=== PATIENT | male | born 1965 ===

== ENCOUNTER 2025-10-09 09:39 | Emergency (ER) | payer OTHER ==
[~2025-10-09] VITALS: Ht 172.7 cm; Wt 92.7 kg
[~2025-10-09 09:39] MED LIST: DOBUTamine/D5W 500mg/250ml premix IV ONE; calcium chloride 100 MG/1 ML inj IV ONE; epiNEPHrine 0.1mg/ml 10ml syringe ONE; etomidate 2mg/ml inj. ONE; niCARDipine in NS 40mg/200ml (0.2mg/ml) IVPB IV ONE; rocuronium 10mg/ml inj IV ONE; sod chloride 0.9% 10ml flush syringe IV ONE; sodium bicarbonate (8.4%) 1 mEq/ml syringe ONE; tPA-cathflo 2mg/2ml IV flush 2 MG/2 ML VIAL ONE
[2025-10-09 09:50] VITALS: TEMP 98.1
--- NOTE | 2025-10-09 09:53 | ELECTROCARDIOGRAPH REPORT ---
[facility] Test Date: 2025-10-09 Test Time: 09:45:13 Pat Name: ALBERTINA HATFIELD Department: EMERGENCY ROOM Patient ID: [id number] Room: Gender: M In File Operator: HAO : 1965 Requested By: BLAKE MAURICIO Order Number: [id number] Reading MD: Dr. SNEHAL Chu Measurements Intervals [place] Rate: 119 P: 40 FL: 147 QRS: -17 QRSD: 164 T: 66 QT: 330 QTc: 465 Interpretive Statements Sinus tachycardia IVCD, consider atypical RBBB Probable anterolateral infarct, acute Electronically Signed On 10-11-2025 17:38:[address] SNEHAL Chu Please click the below link to view image of tracing.
[2025-10-09 10:04] LABS: MEAN PLATELET VOLUME 10.0 FL (7.4-10.4); RED CELL DISTRIBUTION WIDTH 13.7 % (11.5-14.5)
[2025-10-09 10:11] VITALS: RESP 30
[2025-10-09 10:17] LABS: CREATININE 3.04 MG/DL (0.60-1.10); PRO BRAIN NATRIURETIC PEPTIDE 17373 PG/ML (0-125); eCRCL 24 ML/MIN; eGFR 21 ML/MIN
--- NOTE | 2025-10-09 10:19 | RADIOLOGY REPORT ---
EXAM: DI CHEST,SINGLE VIEW Indication: CP Technique: Single frontal view of the chest was obtained Comparison: None FINDINGS: Lines and Tubes: None Lungs: No focal consolidation. Pleura: No effusion. No pneumothorax. Cardiomediastinal contours: Unremarkable Bones: No acute osseous abnormality. IMPRESSION: No acute cardiopulmonary disease.
[2025-10-09 10:36] LABS: LARGE PLATELETS FEW; PLATELET ESTIMATE NORMAL
[2025-10-09 10:42] LABS: TOTAL CARBON DIOXIDE 12.1 MMOL/L (24-32)
[2025-10-09] MEDS ORDERED: heparin 10,000 units/1 ML INJ IV PRN (10:45)
[2025-10-09] MEDS: LidoCAINE 2% Topical Jelly 11mL syringe (UROJET) TOP ONE (11:00)
[2025-10-09] MEDS: NORepinephrine 8mg/ 250ml NS 250 ML IV ONE ×2 (11:16→13:30)
[2025-10-09 11:21] LABS: APTT 28 SECONDS (22-32); INR 1.4 INR
[2025-10-09] MEDS: MESSAGE TO NURSING IV ONE (11:47)
[2025-10-09 12:03] LABS: PHOSPHORUS 11.9 MG/DL (2.3-4.5)
[2025-10-09] MEDS: heparin 25,000 UNIT/250ml bag 250 ML IV PRN (12:19)
[2025-10-09] MEDS: heparin 10,000 units/1 ML INJ IV ONE (12:21)
--- NOTE | 2025-10-09 12:32 | Physician Documentation ---
History of Present Illness ~ Chief Complaint: Chest Pain Stated Complaint: SOB Time Seen by MD: 10:10 Mode of Arrival: POV, Ambulatory HPI 60 years old male presented to the ED with shortness of breaths and back pain. Patient reported his symptoms started last night, he reported he was out for cutting a tree yesterday and when he came back he experienced shortness of breaths and also reported back pain. he reported the back pain located on between his shoulders, severity 9/10, he took ibuprofen and Tylenol and pain has been improving. He denied any cough orthopnea, fever or chills however he reported his progressive shortness of breaths getting worse overnight, light- headedness and generalized weakness. Patient smoked cigarettes occasionally and drink two beer a day, he denied any past medical history, and not taking any medication Denied abdominal pain any changing in bowel habits or urinary symptoms. He does not have primary care doctor, not being checked for any medical condition Medication Reconciliation Allergies: Coded Allergies: No Known Allergies (Unverified , 10/09/25) Past Medical History Past Medical History: No Pertinent History Past Surgical History: no surgical history Smoking Status: Current some day smoker Alcohol Use: Other (Drink alcohol, two beer everyday) Review of Systems ROS The history of present illness included a review of system, which yielded relevant positives and negatives Constitutional: Denies: chills, fever Respiratory: Reports: shortness of breath; Denies: cough, wheezing Cardiovascular: Denies: chest pain Gastrointestinal: Denies: abdominal pain, nausea, vomiting Physical Exam Vital Signs: Temperature: 98.1, Source: Temporal, Heart Rate: 117, Respiratory Rate: 30, BP: 103/65, Pulse Oximetry: 98, Weight: 92.730 Oxygen Flow Rate: 0 Physical Exam General: Awake and Alert, acute distress. HEENT: Conjunctiva pink, Sclera clear, Mucus Membranes dry Neck: Supple without masses and tenderness. Resp: Lungs clear to auscultation bilaterally. Heart: Regular Rate and rhythm, normal S1 and S2, Murmur + Abdomen: Soft and non tender no organomegaly Extremities: No cyanosis,clubbing or edema. Skin: Warm and Dry. Neurological: Speech is clear, alert, and oriented x 4, no gross neurological deficits Procedures Central Line Lumen: triple Central Line Procedure: sterile drapes applied Position: internal jugular (R) Complications: none Post Position: sutured, good blood return Tolerated Procedure Well?: yes, no complications Procedure Note Right IJ central venous catheter performed by resident physician with me scrubbed in as resident programs assistant. She made 1 attempt and had difficulty visualizing the internal jugular vein at which point I took over the procedure and placed the catheter. The patient tolerated the procedure well. Post x-ray showed proper placement Intubation Intubation Method: orotracheal Medications: Etomidate, other (rocuronium) ETT Confirmation: Ascultation, CO2 Detector, Direct Visualization Breath Sounds After Intubation: equal Intubation Complications: no complications Additional Procedures Additional Procedure Note Arterial line attempted x1 by resident physician Chauncey was unsuccessful Placed on 2nd attempt by myself. Patient tolerated procedure well no complications. Sutured in place with good waveform matching blood pressure cuff Progress Progress Note Doctor Mauricio addendum: I was at the bedside of this patient working directly with the resident physician and at bedside for greater than 120 minutes. This is a 60-year-old male who had not seen a primary care physician in years. He arrived presenting initially with back pain yesterday into the evening which has since improved. He developed increasing dyspnea and presented for shortness of breath. He denies any chest pain. His vitals on arrival were slight tachcardia and normotension, initially not requiring oxygen. concern initially for pulmonary embolism versus acute coronary syndrome versus CHF, infectious etiology such as biliary pathology, pneumonia and aortic pathology such as impending aortic dissection with rupture. Bedside ultrasound rapidly performed which showed normal aorta, no cholecystitis or free fluid. Thoracic ultrasound showed no B lines. Bedside echocardiogram initially with slightly diminished systolic function around 55% and no significant RV dilation with no pericardial effusion and no pleural effusions. Labs returned showing leukocytosis and elevated hemoglobin suggestive of infectious versus heme concentration. His metabolic panel showed GFR of 21 creatinine 3.04 and glucose 104 with anion gap metabolic acidosis. EKG showed right bundle. His troponin returned elevated and proBNP profoundly elevated. He tolerated initial crystalloid bolus which improved his pressures and his shortness of breath improved. He remained chest pain-free however hypotension returned for which he was started on vasopressors. He was started on heparin for elevated troponin. Villagran catheter placed at which time he only had 20 cc of urine in his bladder. He was then sent over to CT scan after carefully monitored fluid resuscitation and pressor titration with arterial line in place to help with undifferentiated shock. CT performed which showed right lower lobe infiltrate and no significant pulmonary embolism or intrabominal pathology was seen on CT noncontrast. He was given broad-spectrum antibiotics to cover for potential infectious etiology. He continued to tolerate fluids with no increasing O2 requirements he was given insulin to help with his diabetic ketoacidosis while continuing judicious fluid resuscitation given elevated bnp. Formal echocardiogram was performed as was lower extremity duplex to rule out DVT since given his acute renal failure I did not want to perform CTA pulmonary embolism. Duplex was negative and given his hypotension without profound hypoxia and no signs of RV strain on my bedside ultrasound felt less likely pulmonary embolism. His formal echocardiogram was performed at bedside and we determined his ejection fraction to be 35%. After this he was started on dobutamine for persistent hypotension. The case was discussed with Cardiology regarding the elevated troponin as well as the echocardiogram findings and history and it was recommended that he be medically stabilized. Junior Account Executive came to bedside and evaluated the patient and shortly after unfortunately patient then had an acute episode of return of shortness of breath and syncope. I immediately was at bedside within a few seconds and found him agonal breathing with pulse with persistent sinus tachycardia on the monitor with pulse oximetry in the high 90s. He however at this time became more hypotensive despite maximal pressors he then deteriorated to PEA/non perfusing rhythm and CPR was continued while the patient was intubated. I discussed with cardiology at bedside and we considered giving thrombolytic versus taking him to the [employer]. Given his persistent severe medical instability and multiorgan failure with DKA and now deteriorating systolic function we agreed to try lytic. D/w pigment weigher Dr. King who agreed with poor prognosis. No recommended changes to treatment plan. After most pulse checks he would continue to have sinus tachycardia in the low 100s but with quick deterioration to non perfusable rhythm despite maximal pressors (Levophed, epinephrine and dobutamine). He did have very brief episode of V-tach however he spontaneously cardioverted back to sinus rhythm within a few seconds. Unfortunately given his multiorgan failure with metabolic acidosis, renal failure ([id number] U/O) and DKA with cardiogenic shock he was unable to sustain a perfusable rhythm despite maximal therapy and he ultimately with his family at bedside Results/Orders Reviewed/noted all lab results: Yes Results/Orders Orders - BLAKE MAURICIO MD Chest,Single View (10/09/25 09:51) Monitor (10/09/25 09:51) Saline Lock (10/09/25 09:51) Oxygen (10/09/25 09:51) Culture Blood (10/09/25 10:57) * (A) Villagran- Protocol * Q12H@07,19 (10/09/25 10:57) Vl Venous (10/09/25 10:57) Chest,Single View (10/09/25 11:58) Ct Chest Abdomen Pelvis (10/09/25 13:12) Cult Urine + [place] [facility] (10/09/25 13:24) Norepinephrine 8mg/ 250ml Ns (Norepineph (10/09/25 13:25) Dobutamine-Dobutrex 500mg/D5w (Dobutamin (10/09/25 14:38) Normal Saline 250ml... W/Epinephrine Inj (10/09/25 14:45) Sodium Chloride 0.4... W/Sodium Bicarbon (10/09/25 15:05) Normal Saline 250ml... W/Epinephrine Inj (10/09/25 16:10) Completed Orders - BLAKE MAURICIO MD Chest,Single View (10/09/25 09:51) Cbc/Diff (10/09/25 09:51) BMP (10/09/25 09:51) PBNP (10/09/25 09:51) Electrocardiogram (10/09/25 09:51) Hs Troponin I W Calculations (10/09/25 09:51) Hs Troponin I W Calculations (10/09/25 11:51) Hs Troponin I W Calculations (10/09/25 12:51) Iohexol 350mg/Ml 100ml (Omnipaque 350mg/ (10/09/25 10:39) Norepinephrine 8mg/ 250ml Ns (Norepineph (10/09/25 10:55) Procalcitonin (10/09/25 10:57) LA (10/09/25 10:57) Lidocaine 2% Jelly 11ml Syr (Glydo-Lidoc (10/09/25 11:00) Vl Venous (10/09/25 10:57) ESR (10/09/25 11:00) Message To Nursing (10/09/25 11:00) C-Reactive Protein (10/09/25 09:47) MG (10/09/25 09:47) PHOS (10/09/25 09:47) Ringers Solution, Lacted (Lactated Ringe (10/09/25 11:55) Chest,Single View (10/09/25 11:58) Piperacillin/Tazo 4.5gm/100ml (Zosyn 4.5 (10/09/25 12:10) Vancomycin*Pharmacy To Dose* (Vancomycin (10/09/25 12:10) Ct Chest Abdomen Pelvis (10/09/25 13:12) Vancomycin Inj. (Vancomycin Iv) (10/09/25 12:45) Ondansetron Inj. (Zofran 4mg/2ml Vial) (10/09/25 12:50) Lactic,2hr (10/09/25 13:07) Ua W/Microscopic, Cult If Ind (10/09/25 12:41) Vasopressin 20 Units/Ns 100ml (Vasopress (10/09/25 14:10) Dobutamine-Dobutrex 500mg/D5w (Dobutamin (10/09/25 14:15) Sodium Chloride 0.4... W/Sodium Bicarbon (10/09/25 15:05) Insulin Regular, Human (Humulin R 10 Uni (10/09/25 15:06) Electrocardiogram (10/09/25 15:00) Tranexamic Acid Inj. (Cyklokapron Inj.) (10/09/25 16:20) Medications Received in ER Medications (Trade) Dose Ordered Sig/Symone Route PRN Reason Start Time Stop Time Status Last Admin Dose Admin (heparin 10,000 unit/ml 1ml inj) 7,400 units ONCE ONCE IV 10/09/25 10:45 10/09/25 10:57 DC 10/09/25 12:21 7,400 UNITS Heparin Sodium/ Dextrose 250 ml @ 17 mls/hr [id number] PRN IV TO MAINTAIN PTT WITHIN RANGE 10/09/25 10:45 10/09/25 12:19 17 MLS/HR Norepinephrine Bitartrate 250 ml @ 17.387 mls/ hr [id number] ONCE IV 10/09/25 10:55 10/09/25 13:27 DC 10/09/25 11:16 52.161 MLS/HR Non-Formulary Medication 1 each ONCE ONCE IV 10/09/25 11:00 10/09/25 11:01 DC 10/09/25 11:47 1 EACH (GLYDO-Lidocaine 2% Topical Jelly 11mL syringe) 1 applic ONCE ONCE TOP 10/09/25 11:00 10/09/25 11:01 DC 10/09/25 11:00 1 APPLIC Lactated Ringer's 1,000 ml @ 1,000 mls/hr ONCE ONCE IV 10/09/25 11:55 10/09/25 12:54 DC 10/09/25 12:33 1,000 MLS/HR Piperacillin/ Tazobactam/ Dextrose 100 ml @ 25 mls/hr ONCE ONCE IV 10/09/25 12:10 10/09/25 16:09 DC 10/09/25 13:31 25 MLS/HR Vancomycin HCl 750 mg/Sodium Chloride 250 ml @ 250 mls/hr ONCE ONCE IV 10/09/25 12:45 10/09/25 13:44 DC 10/09/25 13:31 250 MLS/HR (Zofran 4mg/2ml vial) 4 mg ONCE ONCE IV 10/09/25 12:50 10/09/25 12:51 DC 10/09/25 12:57 4 MG Insulin Human Regular 100 ml @ 9 mls/hr [id number] IV 10/09/25 13:10 10/09/25 13:32 9 MLS/HR Norepinephrine Bitartrate 250 ml @ ud STK-MED ONCE IV 10/09/25 13:23 10/24/25 10:30 10/09/25 13:30 0.7 MLS/HR Norepinephrine Bitartrate 250 ml @ 17.387 mls/ hr [id number] IV 10/09/25 13:25 10/09/25 13:33 17.387 MLS/HR Lactated Ringer's 1,000 ml @ 500 mls/hr Q2H ONCE IV 10/09/25 13:35 10/09/25 15:34 DC 10/09/25 13:35 500 MLS/HR Lactated Ringer's 1,000 ml @ 1,000 mls/hr Q1H IV 10/09/25 14:10 10/09/25 19:09 10/09/25 14:10 1,000 MLS/HR Lactated Ringer's 1,000 ml @ 250 mls/hr Q4H IV 10/09/25 14:10 10/09/25 14:10 250 MLS/HR Dobutamine HCl/ Dextrose 250 ml @ 5.564 mls/ hr [id number] ONCE IV 10/09/25 14:38 10/11/25 11:10 10/09/25 14:38 55.638 MLS/HR Epinephrine HCl 10 mg/Sodium Chloride 250 ml @ 13.91 mls/ hr [id number] IV 10/09/25 14:45 10/09/25 14:45 13.91 MLS/HR Sodium Bicarbonate 150 ml/Sodium Chloride 1,150 ml @ 100 mls/hr [id number] IV 10/09/25 15:05 10/09/25 15:05 100 MLS/HR Sodium Bicarbonate 150 ml/Sodium Chloride 1,150 ml @ 1,150 mls/hr Q1H ONCE IV 10/09/25 15:05 10/09/25 16:04 DC 10/09/25 15:05 1,150 MLS/HR (HumuLIN R 10 units per 0.1 ML syringe) 20 units STK-MED ONCE .ROUTE 10/09/25 15:06 10/09/25 15:06 DC 10/09/25 15:06 20 UNITS (Cyklokapron inj.) 50 mg ONCE ONCE IV 10/09/25 16:20 10/09/25 16:21 DC 10/09/25 14:30 50 MG Vital Signs 10/09/25 10/09/25 10/09/25 10/09/25 09:50 10:00 10:11 10:15 Temp 98.1 Pulse 117 120 116 Resp 20 30 B/P (MAP) 132/110 85/65 (72) 95/59 (71) Pulse Ox 98 95 95 O2 Flow Rate 0 10/09/25 10/09/25 10/09/25 10/09/25 10:30 11:00 11:16 11:18 Pulse 120 120 B/P (MAP) 62/46 (51) 90/59 (69) 80/64 103/65 Pulse Ox 98 99 10/09/25 10/09/25 10/09/25 10/09/25 11:30 11:45 12:00 12:30 Pulse 120 117 117 116 B/P (MAP) 99/76 (84) 100/66 (77) 147/127 (134) 94/74 (81) Pulse Ox 99 98 99 99 10/09/25 10/09/25 10/09/25 10/09/25 13:00 13:30 13:30 14:00 Pulse 118 120 115 B/P (MAP) 147/120 (129) 154/137 (143) 89/62 174/134 (147) Pulse Ox 99 99 99 10/09/25 10/09/25 14:30 15:00 Pulse 115 B/P (MAP) 84/54 (64) 145/61 (89) Pulse Ox 99 99 Laboratory Tests Test 10/09/25 09:47 10/09/25 12:41 10/09/25 12:44 10/09/25 12:46 White Blood Count 16.8 H Red Blood Count 5.42 Hemoglobin 18.0 *H Hematocrit 55.5 H Mean Corpuscular Volume 102.4 H Mean Corpuscular Hemoglobin 33.2 H Mean Corpuscular Hemoglobin Concent 32.4 L Red Cell Distribution Width 13.7 Platelet Count 194 Mean Platelet Volume 10.0 Neutrophils (%) (Auto) 81.2 H Lymphocytes (%) (Auto) 7.7 L Monocytes (%) (Auto) 11.0 Eosinophils (%) (Auto) 0 Basophils (%) (Auto) 0.1 Neutrophils # (Auto) 13.6 H Lymphocytes # (Auto) 1.3 Monocytes # (Auto) 1.8 H Eosinophils # (Auto) 0.0 Basophils # (Auto) 0.0 CBC Comment Platelet Estimate Normal Large Platelets Few Red Blood Cell Morphology Perf Basophilic Stippling Macrocytosis 1+ Erythrocyte Sedimentation Rate 2 Prothrombin Time 13.6 H INR International Normalized Ratio 1.4 Activated Partial Thromboplast Time 28 D-Dimer 5.83 H D-Dimer Comment Coagulation Comments Sodium Level 131 L Potassium Level 4.9 Chloride Level 88 L Carbon Dioxide Level 12.1 *L Anion Gap 31 H Blood Urea Nitrogen 38 H Creatinine 3.04 H Estimated GFR/1.73 m2 21 BUN/Creatinine Ratio 12.5 Glucose Level 804 *H Lactic Acid Level 18.8 *H Calcium Level 9.4 Phosphorus Level 11.9 H Magnesium Level 3.3 H Troponin I High Sensitivity 92496 *H 983718 *H Troponin I High Sens Percent Delta Troponin I Hi Sens Absolute Change C-Reactive Protein 1.75 H Pro-B-Type Natriuretic Peptide 77621 H Albumin 4.0 Procalcitonin 1.03 H Chemistry Comments Urine Specimen Description Villagran cath Urine Color Yellow Urine Clarity Clear Urine pH 5.5 Urine Specific [place] 1.025 Urine Protein Trace Urine Glucose (UA) >=1000 H Urine Ketones 15 H Urine Occult Blood Large H Urine Nitrite Negative Urine Bilirubin Small Urine Urobilinogen 0.2 Urine Leukocyte Esterase Negative Urine RBC 20-50 Urine WBC 10-20 H Urine Squamous Epithelial Cells Few Urine Bacteria 1+ Urine Hyaline Casts 3-5 Urine Mucus Few Urine Culture Indicated Indicated Volume Urine Centrifuged 10 ml Urine Comment Glucometer > 600 *H Test 10/09/25 13:43 10/09/25 15:04 Sodium Level 136 Potassium Level 5.5 H Chloride Level 95 L Carbon Dioxide Level 9.6 *L Anion Gap 31 H Blood Urea Nitrogen 42 H Creatinine 3.21 H Estimated GFR/1.73 m2 20 BUN/Creatinine Ratio 13.1 Glucose Level 744 *H Lactic Acid Level 17.0 *H Calcium Level 8.4 L Magnesium Level 3.2 H Total Bilirubin 2.4 H Aspartate Amino Transf (AST/SGOT) 1129 H Alanine Aminotransferase (ALT/SGPT) 716 H Alkaline Phosphatase 93 Troponin I High Sensitivity 944904 *H Troponin I High Sens Percent Delta Troponin I Hi Sens Absolute Change Total Protein 6.6 Albumin 3.2 L Globulin 3.4 Albumin/Globulin Ratio 0.9 L Lipase 359 H Chemistry Comments Glucometer > 600 *H Microbiology Date/Time Source Procedure Growth Status 10/09/25 13:24 Urine Villagran Cath Urine Culture - Preliminary Culture received. Resulted 10/09/25 12:44 Blood Arm Right Blood Culture - Preliminary NEGATIVE (LESS THAN 24 HOURS) Resulted EKG/XRAY/CT/US/VASC/MRI EKG : Additional Comment EKG showed sinus tachycardia rate 119, right bundle branch block, no ST- elevation Chest X-Ray : Additional Comments EXAM: DI CHEST,SINGLE VIEW Indication: CP Technique: Single frontal view of the chest was obtained Comparison: None FINDINGS: Lines and Tubes: None Lungs: No focal consolidation. Pleura: No effusion. No pneumothorax. Cardiomediastinal contours: Unremarkable Bones: No acute osseous abnormality. IMPRESSION: No acute cardiopulmonary disease. : Impression Indication: shock Technique: CT axial images of the chest, abdomen and pelvis are obtained without intravenous contrast. Coronal and sagittal reformats were obtained. Radiation Dose Information: CTDI volume is 21 mGy. Dose-length product is 1455 mGy*cm Comparison: None FINDINGS: Limited evaluation without contrast. Trachea patent. No pneumothorax. Right lower lobe airspace consolidation, ground-glass disease and interlobular septal thickening. Heart normal in size. Coronary artery calcification disease. Tiny right pleural effusion. 12 mm subcarinal lymph node. No supraclavicular, axillary lymphadenopathy. Adrenal glands, spleen, pancreas unremarkable in shape. Hepatic steatosis. No CT evidence for cholelithiasis. No hydronephrosis, nephrolithiasis. Gastric distention. Small bowel loops are normal in caliber. Colonic diverticular disease. Normal appendix. Moderate volume stool in the colon. Abdominal aortic atherosclerotic disease. Bladder decompressed by Villagran catheter. Cm transversely. No free pelvic fluid. No inguinal lymphadenopathy. Right hydrocele. No aggressive osseous process. [id number] thoracolumbar degenerative disc disease. Right IJ catheter terminating in the SVC. IMPRESSION: Right lower lobe pulmonary airspace consolidation, ground-glass disease and interlobular septal thickening which can be secondary to combination of infection, inflammatory and edematous etiologies. Recommend follow-up to resolution to exclude any type of underlying neoplastic process/carcinomatosis. Tiny right pleural effusion. Mediastinal lymphadenopathy which could be secondary to infectious, inflammatory, neoplastic etiologies. Hepatic steatosis. Colonic diverticular disease. Atherosclerotic disease. Prostatomegaly. Correlate with PSA levels. Other findings as described Ultrasound : Impression EXAM: Comprehensive 2D, Doppler, and color-flow Echocardiogram. Patient Location: ED6 Blood Pressure: 95/63 mmHg Heart Rate: 118 bpm Rhythm: Sinus Tachycardia Indications SHORTNESS OF BREATH PRESETTER OPERATOR: SNEHAL SALAZAR MD PRIOR ECHOCARDIOGRAM: None. 2D Dimensions RVDd 3.0 cm IVSd 1.1 (0.7-1.1cm) LVDd 4.4 cm PWd 1.0 (0.7-1.1cm) IVSs 1.1 (0.8-1.2cm) LVDs 3.7 (2.5-4.0cm) PWs 1.1 (0.8-1.2cm) LVOT Diameter 2.02 (1.8-2.4cm) LVEF(%) 33.8 (>50%) FS (%) 15.9 % SV 29.8 ml CO 3.5 L/min M-Mode Dimensions Left Atrium(MM) 4.51 (2.5-4.0cm) Aortic Root 3.15 (2.2-3.7cm) Aortic Cusp Exc 1.95 (1.5-2.0cm) Aortic Valve AoV Peak Elmo. 74.4 cm/s AoV VTI 8.2 cm AO Peak GR. 2.2 mmHg AO Mean GR. 1 mmHg LVOT VTI 5.16 cm LVOT Peak Elmo. 44.2 cm/s YULY (VTI) 2.01 cm2 AV DI 0.63 % Mitral Valve MV E Velocity 51.1 cm/s MV Peak Gr. 3 mmHg MV A Velocity 65.9 cm/s MV PHT 36 ms E/A Ratio 0.8 MVA (PHT) 6.11 cm2 MV VMax 81.1 cm/s Tricuspid Valve TR P. Velocity 256 cm/s RAP ESTIMATE 5 mmHg TR Peak Gr. 26 mmHg RVSP 31 mmHg LEFT VENTRICLE Normal LV size with moderately reduced function. Borderline mild concentric hypertrophy. Mid to distal anteroseptal and apical akinesis. LVEF is 30-35%. RIGHT VENTRICLE Right ventricle is borderline dilated. The right ventricular systolic function is normal. RVSP is 31 mmHg. ATRIA Left atrium is mildly dilated. The right atrium size is normal. AORTIC VALVE Trileaflet AV appears mildly sclerotic without stenosis. No insufficiency. MITRAL VALVE Mild mitral annular calcification without stenosis. No regurgitation. TRICUSPID VALVE The tricuspid valve is normal in structure. Mild regurgitation. PULMONIC VALVE Pulmonic valve is not well visualized. GREAT VESSELS The aortic root is normal in size. The ascending aorta is normal in size. IVC is mildly dilated and collapses less than 50% with inspiration. PERICARDIUM Normal pericardium. No effusion. Other Information Study Quality: Fair Technically limited study due to Study done [id number] Heart Score: Heart Score Response (Comments) Value History Highly Suspicious 2 EKG Repolarization Disturb 1 Age 45-64 1 Risk Factors 1 or 2 risk factors 1 Troponin >3 x's Normal limit 2 Total 7 Medical Decision Making Additional information obtaine: family Findings 60 years old male presented with shortness of breaths and back pain patient was hypotensive, on room air with a good O2 saturation Differential diagnosis would be not limited to, cardiogenic shock, septic shock, myocardial infarction, aortic aneurysm, dissection, PE, pneumonia, Patient was hypotensive, received IV fluid on arrival, and Levophed started, blood pressure was maintaining Initial labs showed elevated troponin trending up, EKG showed sinus tachycardia with right bundle branch block no ST-elevation Patient received aspirin and heparin drip started, cardiology consulted, Echocardiography ordered stat, serial EKG ordered Glucose and anion gap and lactic acid were elevated, insulin drip started, another 2 L of ringer lactate ordered and put patient on DKA protocol and pigment weigher was consulted. Patient also had leukocytosis with left shift, chest x-ray no any acute pathologic reported, patient received Zosyn and vancomycin. Abdominal chest pelvic CT scan ordered which showed Right lower lobe pulmonary airspace consolidation, ground-glass disease Patient became unresponsive, code blue paged and CPR restarted, EKG PEA, patient received epinephrine, bicarb Norepinephrine drip and dobutamine drip continued, troponin trending up, machinist wood and pigment weigher are on the bedside, for possible myocardial infarction patient received thrombolytics as well Patient underwent CPR for about 1 hour, unfortunately it was unsuccessful and he at 15:23 Heart Score: 7 Differential Dx:Considerations: Include: angina, aortic dissection, chest wall pain, CHF, myocardial infarction, pneumonia, pneumothorax Departure Disposition: 20 Impression: Primary Impression: Acute coronary syndrome Additional Impressions: Hyperglycemia Septic shock Cardiorenal disease Cardiogenic shock NSTEMI (non-ST elevated myocardial infarction) DKA (diabetic ketoacidosis) Qualified Codes: E13.10 - Other specified diabetes mellitus with ketoacidosis without coma Referrals: NO PRIMARY CARE PROVIDER (PCP) Critical Care Note Total Time (mins): 130 Critical Care Note The very real possibility of a deterioration of this patient's condition required the highest level of my preparedness for sudden, emergent intervention. I provided critical care services, which included medication orders, frequent reevaluations of the patient's condition and response to treatment, ordering and reviewing test results, and discussing the case with necessary consultants. Critical care time was exclusive of necessary procedure time. The critical care time associated with the care of the patient was 130 minutes. Signature Scribe Signature: no scribe Attestation: The resident MD attestation: I examined the patient and discussed the plan with attending physician GOYO Samuel, RES Oct 09, 2025 12:32 BLAKE MAURICIO MD Oct 09, 2025 16:16
[2025-10-09] MEDS: ringers solution, lacted 1,000 ML IV ONE ×2 (12:33→13:35)
--- NOTE | 2025-10-09 12:47 | RADIOLOGY REPORT ---
EXAM: DI CHEST,SINGLE VIEW Indication: post central line Technique: Single frontal view of the chest was obtained Comparison: DI CHEST,SINGLE VIEW on DOS: 10/09/25 FINDINGS: Lines and Tubes: Right internal jugular central venous catheter tip projects over the superior vena cava. Lungs: No focal consolidation. Pleura: No effusion. No pneumothorax. Cardiomediastinal contours: Unremarkable Bones: No acute osseous abnormality. IMPRESSION: No acute cardiopulmonary disease.
[2025-10-09] MEDS ORDERED: insulin regular, human 10 units/0.1 ml syringe IV ONE (12:55)
[2025-10-09] MEDS: ondansetron/PF 4mg/2ml inj IV ONE (12:57)
[2025-10-09 13:06] LABS: LEUKOCYTE ESTERASE ,URINE NEGATIVE (Neg); NITRITES, URINE NEGATIVE (Neg); OCCULT BLOOD,URINE LARGE (Neg)
[2025-10-09] MEDS ORDERED: dextrose 50%-water 50ml dispensing syringe IV PRN ×2 (13:10→14:10)
[2025-10-09] MEDS ORDERED: potassium Cl 40MEQ/270ML bag 270 ML IV PRN ×2 (13:10→14:10)
[2025-10-09] MEDS ORDERED: magnesium sulf-water 2g/50mL 50 ML IV PRN ×2 (13:10→14:10)
[2025-10-09] MEDS ORDERED: potassium Cl 40MEQ/1/2NS 520ml 520 ML IV PRN ×2 (13:10→14:10)
[2025-10-09] MEDS ORDERED: sodium phos 15mmol/D5 255mL 255 ML IV PRN ×2 (13:10→14:10)
[2025-10-09 13:21] LABS: UA COLLECTION TYPE FOLEY CATH
[2025-10-09 13:22] LABS: SQUAMOUS EPITHELIAL CELL,UR FEW /LPF (FEW)
[2025-10-09 13:23] LABS: MUCUS STRANDS FEW /LPF (Neg)
[2025-10-09] MEDS: vancomycin inj. 750 MG in normal saline 250ml IV soln 250 ML IV ONE (13:31)
[2025-10-09] MEDS: piperacillin/tazo 4.5gm/100ml 100 ML IV ONE (13:31)
[2025-10-09] MEDS: Insulin Reg/NS 100units/100mL 100 ML IV SCH (13:32)
[2025-10-09] MEDS: NORepinephrine 8mg/ 250ml NS 250 ML IV SCH (13:33)
--- NOTE | 2025-10-09 13:52 | RADIOLOGY REPORT ---
Indication: shock Technique: CT axial images of the chest, abdomen and pelvis are obtained without intravenous contrast. Coronal and sagittal reformats were obtained. Radiation Dose Information: CTDI volume is 21 mGy. Dose-length product is 1455 mGy*cm Comparison: None FINDINGS: Limited evaluation without contrast. Trachea patent. No pneumothorax. Right lower lobe airspace consolidation, ground-glass disease and interlobular septal thickening. Heart normal in size. Coronary artery calcification disease. Tiny right pleural effusion. 12 mm subcarinal lymph node. No supraclavicular, axillary lymphadenopathy. Adrenal glands, spleen, pancreas unremarkable in shape. Hepatic steatosis. No CT evidence for cholelithiasis. No hydronephrosis, nephrolithiasis. Gastric distention. Small bowel loops are normal in caliber. Colonic diverticular disease. Normal appendix. Moderate volume stool in the colon. Abdominal aortic atherosclerotic disease. Bladder decompressed by Villagran catheter. Cm transversely. No free pelvic fluid. No inguinal lymphadenopathy. Right hydrocele. No aggressive osseous process. [id number] thoracolumbar degenerative disc disease. Right IJ catheter terminating in the SVC. IMPRESSION: Right lower lobe pulmonary airspace consolidation, ground-glass disease and interlobular septal thickening which can be secondary to combination of infection, inflammatory and edematous etiologies. Recommend follow-up to resolution to exclude any type of underlying neoplastic process/carcinomatosis. Tiny right pleural effusion. Mediastinal lymphadenopathy which could be secondary to infectious, inflammatory, neoplastic etiologies. Hepatic steatosis. Colonic diverticular disease. Atherosclerotic disease. Prostatomegaly. Correlate with PSA levels. Other findings as described
[2025-10-09] MEDS: ringers solution, lacted 1,000 ML IV SCH ×2 (14:10)
[2025-10-09] MEDS ORDERED: [UNRECOGNIZED DRUG - OTHER] IV ONE (14:10)
[2025-10-09] MEDS ORDERED: SODIUM BICARBONATE IV ONE (14:10)
[2025-10-09] MEDS ORDERED: magnesium hydroxide 30ml (MOM) UD suspension PO PRN (14:10)
[2025-10-09] MEDS ORDERED: LidoCAINE 2% Topical Jelly 11mL syringe (UROJET) TOP ONE (14:10)
[2025-10-09] MEDS ORDERED: sodium phosphate inj. 30 MMOL in dextrose 5%-water 250 ML IV PRN (14:10)
[2025-10-09] MEDS ORDERED: VASOPRESSIN 20 UNITS/NS 100mL 100 ML IV ONE (14:10)
[2025-10-09] MEDS ORDERED: ondansetron/PF 4mg/2ml inj IV PRN (14:10)
[2025-10-09] MEDS ORDERED: WATER FOR INJ IV ONE (14:10)
[2025-10-09] MEDS ORDERED: morphine 4 MG/ML inj SYRINge IV PRN (14:10)
[2025-10-09] MEDS ORDERED: Insulin Reg/NS 100units/100mL 100 ML IV SCH (14:10)
[2025-10-09] MEDS ORDERED: POTASSIUM CL IV ONE (14:10)
[2025-10-09] MEDS ORDERED: DOBUTamine-DoBUTrex 500mg/D5W 250 ML IV ONE (14:15)
[2025-10-09 14:30] VITALS: PULSE 115
[2025-10-09] MEDS: tranexamic acid 100mg/ml inj. IV ONE (14:30)
[2025-10-09 14:34] LABS: CREATININE 3.21 MG/DL (0.60-1.10); eCRCL 23 ML/MIN; eGFR 20 ML/MIN
[2025-10-09] MEDS: DOBUTamine-DoBUTrex 500mg/D5W 250 ML IV ONE (14:38)
[2025-10-09 14:41] LABS: TOTAL CARBON DIOXIDE 9.6 MMOL/L (24-32)
--- NOTE | 2025-10-09 14:41 | ELECTROCARDIOGRAPH REPORT ---
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 SNEHAL Chu Measurements Intervals [place] Rate: 127 P: 0 TN: 280 QRS: 46 QRSD: 160 T: 73 QT: 365 QTc: 531 Interpretive Statements Sinus tachycardia Prolonged TN interval Prominent P waves, nondiagnostic IVCD, consider atypical RBBB Anterolateral infarct, acute (LAD) Electronically Signed On 10-12-2025 18:00:[address] SNEHAL Chu Please click the below link to view image of tracing.
[2025-10-09] MEDS: epiNEPHrine inj 10 MG in normal saline 250ml IV soln 240 ML IV SCH (14:45)
[2025-10-09 15:00] VITALS: BP 145/61; O2SAT 99
[2025-10-09] MEDS: SODIUM BICARBONATE 150MEQ IN D5W 1,150 ML IV ONE (15:05)
[2025-10-09] MEDS: SODIUM BICARBONATE 150MEQ IN D5W 1,150 ML IV SCH (15:05)
[2025-10-09] MEDS: insulin regular, human 10 units/0.1 ml syringe ONE (15:06)
--- NOTE | 2025-10-09 15:41 | ELECTROCARDIOGRAPH REPORT ---
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 SNEHAL Chu Measurements Intervals [place] Rate: 96 P: 0 HI: 148 QRS: 90 QRSD: 193 T: 104 QT: 399 QTc: 505 Interpretive Statements Age not entered, assumed to be 48 years old for purpose of ECG interpretation Sinus rhythm Nonspecific intraventricular conduction delay Repol abnrm suggests recent infarcts/ischemia, anterolateral Electronically Signed On 10-12-2025 18:00:[address] SNEHAL Chu Please click the below link to view image of tracing.
[2025-10-09] MEDS: epiNEPHrine 5 MG in NS 250ml IV.SOLN IV ONE (16:17)
--- NOTE | 2025-10-09 16:40 | HISTORY AND PHYSICAL-Residence ---
History & Physical Providers to CC Resident Creating Document: RICCARDO EDMONDSON RES ~ History of Present Illness Primary Medical Doctor: None Reason for Admit\Complaint: Chest pain, shortness of breath History of Present Illness This is a 60-year-old male patient with a past medical history of diabetes mellitus, and no other diagnosed medical conditions presented to the hospital with his two daughters with complaints of uneasiness starting yesterday afternoon. The patient was apparently in normal health yesterday morning, he went to his daughter's house to cut a tree down and on the way back to his house he started to feel uneasy. Symptoms had remained throughout the day and additionally, he also developed acute onset back pain in between his shoulder blades last evening. His symptoms of uneasiness, shortness of breath, intermittent chest pain and nausea persisted throughout due to which they had come into the ER today. Allergies: Coded Allergies: No Known Allergies (Unverified , 10/09/25) Past Medical History Past Medical History Type 2 diabetes mellitus; takes no medications Past Surgical History Surgical History Comment Orthopedic procedures Past Social History Social History Comment Occasionally smokes cigar, occasional drinker. Denies any other illicit drug abuse. Lives at home with his girlfriend. Ambulates independently Used to work in the [employer]; retired recently in August Alcohol Use: Other (Drink alcohol, two beer everyday) ROS ROS Admits with shortness of breath, diaphoresis and orthopnea Exam Vitals: Vital Signs Date Time Temp Pulse Resp B/P (MAP) Pulse Ox O2 Delivery O2 Flow Rate FiO2 10/09/25 15:00 145/61 (89) 99 10/09/25 14:30 115 10/09/25 10:11 30 10/09/25 09:50 98.1 0 General: General: Awake and Alert, appears in respiratory distress and unable to complete a full sentence HEENT: Conjunctiva pink, Sclera clear, Mucus Membranes moist. Neck: Right IJ. Carotid bruits heard bilaterally Resp: Unlabored. Lungs clear to auscultation bilaterally. Heart: Regular Rate and rhythm, normal S1 and S2 without murmur, rub or gallop. Abdomen: Soft and non tender no organomegaly Extremities: No cyanosis,clubbing or edema. Skin: Warm and Dry. Diagnostic Data Last Recorded Lab Results: 10/09/25 0947 10/09/25 1343 Diagnostic Data: Laboratory Tests Test 10/09/25 09:47 Prothrombin Time 13.6 SECONDS (9.0-12.0) H INR International Normalized Ratio 1.4 INR Activated Partial Thromboplast Time 28 SECONDS (22-32) D-Dimer 5.83 MG/L FEU (0-0.50) H D-Dimer Comment Coagulation Comments Advance Care Planning Advanced Care plannin - 30 Minutes Additional Plan Cardiac arrest: Failed ROSC Recurrent PEA and asystole Patient was coded for 45 minutes without success After discussing the family, it was deemed that further resuscitation was medically futile Family at bedside NSTEMI: Acute cardiogenic shock secondary to above Initial troponin >67838; progressively worsened to 367203 EKG reveals ST elevations in V1 V2 and ST depressions in II and III, RBBB pattern as well Received aspirin and statin in the ER Echocardiogram revealed mid to distal anteroseptal and apical akinesis with LVEF of 30-35% Started Levophed at 3mcg/kg/min to maintain cardiac output Cardiology, Dr. Chu consulted. However, patient was unstable for catheterization Diabetic ketoacidosis: Poorly controlled type 2 diabetic Serum blood sugars at 800- POA Bicarb 12.1 Insulin drip started in the ER; no significant improvement noted Anion gap acidosis: Secondary to DKA and cardiogenic shock IV fluids, insulin drip and Levophed Acute kidney injury: POA Likely secondary to shock IV fluids 3 L received; minimal urine output through the Villagran's catheter Lines: Right IJ, left arterial line Code status: Full code Riccardo Edmondson PGY3, Internal medicine resident Date of Service: Oct 09, 2025 Billing Provider: FREDY BARROS MD, DEEPANJALI, RES Oct 09, 2025 16:40
--- NOTE | 2025-10-09 16:47 | DISCHARGE SUMMARY-Residence ---
Discharge Summary Providers to CC Resident Creating Document: BEV LOPEZ RES ~ Discharge Summary Admission Diagnosis: Acute cardiogenic shock Hospital Course DATE OF ADMISSION: 10/09/25 DATE OF DISCHARGE: 10/09/25 Discharge Diagnosis\Comment: Acute cardiogenic shock secondary to massive myocardial infarction Cardiogenic shock induced multiorgan failure including pulmonary edema mediated acute hypoxemic respiratory failure and acute kidney injury Diabetic ketoacidosis Anion gap metabolic acidosis secondary to cardiogenic shock and DKA Operations\Procedures: Endotracheal intubation, right IJV, left radial artery catheter, Villagran's catheter Consultants: Dr. Chu, Dr. King Complications: None Condition on DC: Discharge Summary: This is a 60-year-old male patient with a past medical history of type 2 diabetes mellitus and has no other diagnosed medical history due to no willingness to follow up with physicians. He presented to the hospital with worsening back pain in between the shoulder blades as well as nausea with the fatigue that began 24 hours prior to the presentation. On presentation, the patient had multiple conditions including DKA, anion gap metabolic acidosis secondary to ketoacidosis and lactic acidosis, severe hypotension requiring pressor support and in acute kidney injury. He was initially on nasal cannula oxygen and was saturating at 100%, but he developed progressive difficulty in re spiration with increasing shortness of breath and difficulty completing sentences while I was at bedside. He suddenly became unresponsive requiring intubation and ACLS protocols to be initiated. Cold was started at 14 15 to 3:30 p.m.. There was no palpable pulse and the patient kept going back into PE and asystole. He was maxed out on dobutamine drip, Levophed drip and epinephr ine drip but his blood pressure had not responded at all. Dr. Chu was consulted but the patient was unstable for any acute interventions. TPA was also given during the code. As ongoing trials were medically futile, after 45 minutes and with approval of the family, further trials full stopped. The patient had passed at 15:18 with family at bedside including the 2 daughters, step daughter and girlfriend. *Problems/Diagnosis: (1) Cardiogenic shock Status: Acute Total Time Spent on D/C: Up to 30 Minutes Date of Service: Oct 09, 2025 Billing Provider: FREDY KING MD, DEEPANJALI, RES Oct 09, 2025 16:46
--- NOTE | 2025-10-09 17:23 | VASCULAR REPORT ---
Procedure: [facility] Study Date and Requested Time: 10/09/2025 01:44 PM History: Comparison: None Technique: Multiple high resolution cordero-scale images with and without compression obtained of the bilateral lower extremity veins, including the common femoral vein, deep femoral vein, proximal mid and distal superficial femoral vein, and popliteal vein. Additional limited images of the greater saphenous vein also obtained. Augmentation performed as indicated. Color and spectral doppler flow images obtained as indicated. Findings: No visible intraluminal venous thrombus. No evidence of incompressibility or abnormal color or spectral Doppler flow visualized in the bilateral lower extremity veins including, the common femoral vein, deep femoral vein, proximal mid and distal superficial femoral vein, and popliteal vein. Greater saphenous vein grossly unremarkable. Right popliteal fossa cyst measuring up to 2.4 x 2.4 cm Impression: No sonographic evidence of bilateral lower extremity deep venous thrombosis.
--- NOTE | 2025-10-09 17:28 | CARDIOLOGY REPORT ---
APPROVED REPORT EXAM: Comprehensive 2D, Doppler, and color-flow Echocardiogram. 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 2D Dimensions RVDd 3.0 cm IVSd 1.1 (0.7-1.1cm) LVDd 4.4 cm PWd 1.0 (0.7-1.1cm) IVSs 1.1 (0.8-1.2cm) LVDs 3.7 (2.5-4.0cm) PWs 1.1 (0.8-1.2cm) LVOT Diameter 2.02 (1.8-2.4cm) LVEF(%) 33.8 (>50%) FS (%) 15.9 % SV 29.8 ml CO 3.5 L/min M-Mode Dimensions Left Atrium(MM) 4.51 (2.5-4.0cm) Aortic Root 3.15 (2.2-3.7cm) Aortic Cusp Exc 1.95 (1.5-2.0cm) Aortic Valve AoV Peak Elmo. 74.4 cm/s AoV VTI 8.2 cm AO Peak GR. 2.2 mmHg AO Mean GR. 1 mmHg LVOT VTI 5.16 cm LVOT Peak Elmo. 44.2 cm/s YULY (VTI) 2.01 cm2 AV DI 0.63 % Mitral Valve MV E Velocity 51.1 cm/s MV Peak Gr. 3 mmHg MV A Velocity 65.9 cm/s MV PHT 36 ms E/A Ratio 0.8 MVA (PHT) 6.11 cm2 MV VMax 81.1 cm/s Tricuspid Valve TR P. Velocity 256 cm/s RAP ESTIMATE 5 mmHg TR Peak Gr. 26 mmHg RVSP 31 mmHg LEFT VENTRICLE Normal LV size with moderately reduced function. Borderline mild concentric hypertrophy. Mid to distal anteroseptal and apical akinesis. There is severe LV systolic dysfunction present. Overall estimated LVEF is about 30-35%. RIGHT VENTRICLE Right ventricle is borderline dilated. The right ventricular systolic function is normal. RVSP is 31 mmHg. ATRIA Left atrium is mildly dilated. The right atrium size is normal. AORTIC VALVE Trileaflet AV appears mildly sclerotic without stenosis. No insufficiency. MITRAL VALVE Mild mitral annular calcification without stenosis. No regurgitation. TRICUSPID VALVE The tricuspid valve is normal in structure. Mild regurgitation. PULMONIC VALVE Pulmonic valve is not well visualized. GREAT VESSELS The aortic root is normal in size. The ascending aorta is normal in size. IVC is mildly dilated and collapses less than 50% with inspiration. PERICARDIUM Normal pericardium. No effusion. Other Information Study Quality: Fair Technically limited study due to Study done [id number] Conclusion There is severe LV systolic dysfunction present. Overall estimated LVEF is about 30-35%. Normal LV size with moderately reduced function. Borderline mild concentric hypertrophy. Mid to distal anteroseptal and apical akinesis. Right ventricle is borderline dilated. The right ventricular systolic function is normal. RVSP is 31 mmHg. Trileaflet AV appears mildly sclerotic without stenosis. No insufficiency. Mild mitral annular calcification without stenosis. No regurgitation. The tricuspid valve is normal in structure. Mild regurgitation. Normal pericardium. No effusion.
== END 2025-10-09 18:28 ==
LOC: ER 09:41
DX: I24.9 Acute ischemic heart disease, unspecified (principal); I21.4 Non-ST elevation (NSTEMI) myocardial infarction; E10.22 Type 1 diabetes mellitus with diabetic chronic kidney disease; I13.10 Hypertensive heart and chronic kidney disease without heart failure, with stage 1 through stage 4 chronic kidney disease, or unspecified chronic kidney disease; E10.11 Type 1 diabetes mellitus with ketoacidosis with coma; R65.21 Severe sepsis with septic shock; N18.9 Chronic kidney disease, unspecified; F17.200 Nicotine dependence, unspecified, uncomplicated
CPT/HCPCS: 31500; 36415; 36556; 71045; 71250; 74176; 80048; 80053; 81001; 82948; 83605; 83690; 83735; 83880; 84100; 84145; 84484; 85008; 85025; 85379; 85610; 85651; 85730; 86140; 87040; 87088; 92950; 93005; 93306; 93970; 96365; 96366; 96368; 96375; 96376; 99291; 99292; J0169; J1250; J1644; J1815; J2405; J2543; J3373; J3490; J7030; J7050; J7120; 51702; 94760; A4615; A6449; C1751; C1758; J2997; Q9967